=== PATIENT | male | born 1970 | race Caucasian/White ===

== ENCOUNTER 2016-12-31 10:29 | Day surgery (SDC) | payer OTHER ==
[2016-12-29 09:45] VITALS: BMI 27.3
[~2016-12-31 10:29] MED LIST: LACTATED RINGERS 1,000 ML IV SCH
[2016-12-31 10:50] VITALS: TEMP 97.6
[2016-12-31] MEDS ORDERED: PROPOFOL 10 MG/ML 20 ML VIAL IV ONE (11:10)
[2016-12-31] MEDS ORDERED: LIDOCAINE 1% INJ 10MG/ML (20 ML MDV) ONE (11:10)
--- NOTE | 2016-12-31 11:22 | P.PCN ---
Date of Procedure: 12/31/16 Procedure(s) Performed: BRIEF HISTORY: Patient is a 46-year-old, pleasant, white male, scheduled for an upper endoscopy as part of evaluation of long-standing history of GERD symptoms. He is on Prilosec 20 mg twice daily and still has nocturnal symptoms and a daily basis. He is hence scheduled for an upper endoscopy to rule out complicated reflux disease. PROCEDURE PERFORMED: Esophagogastroduodenoscopy with biopsy. PREOPERATIVE DIAGNOSIS: Long-standing history of GERD. IV sedation per anesthesia. PROCEDURE: After informed consent was obtained, the patient was brought into the endoscopy unit. IV conscious sedation was administered by Anesthesia under continuous monitoring. Initially the Olympus GIF-140 video endoscope was inserted into the mouth. Esophagus intubated without any difficulty. It was gradually advanced into the stomach and duodenum and carefully examined. The bulb and the second part of the duodenum appeared normal. The scope at this time was withdrawn to the stomach, adequately insufflated with air, and upon careful examination, mucosa of the antrum, had mild antral gastritis and biopsies were done from this area to rule out H. pylori infection. body, cardia and the fundus appeared normal. The scope was then withdrawn into the esophagus. Small hiatal hernia noted. The GE junction was located at 39 cm from the incisors. The esophagus appeared normal. There were no erosions or ulcerations seen and the patient tolerated the procedure well. IMPRESSION: 1. Small hiatal hernia but no evidence of Andersen's esophagus or esophagitis. 2. Mild antral gastritis gastritis. RECOMMENDATIONS: The findings of this examination were discussed with the patient as well as his family. He was advised to continue with Prilosec 20 mg twice daily half hour before breakfast and dinnertime and follow antireflux measures. If needed he was also advised to use [id number] Zantac at bedtime. He will follow with the biopsy results.
[2016-12-31 11:27] VITALS: RESP 18
[2016-12-31 12:00] VITALS: BP 112/81; PULSE 63
--- NOTE | 2017-01-09 06:47 | CDI ---
Dear Dr. Lawler, The operative reports documents IV sedation per anesthesia in one spot and IV Conscious sedation in the paragraph marked Procedure. The Anesthesia Record, however, has GA/Unconscious sedation checked off under Technique. This is conflicting documentation that needs clarification. Please clarify whether the anesthesia provided Luis Gale was Conscious sedation or GA/unconscious sedation. Please document this clarification as an addendum to the operative report. Thank you for your time, Martha Moseley,[facility] Outpatient Geophysical Operator Ashwini and Lucy FOOTE
--- NOTE | 2017-01-11 07:35 | CDI ---
Dear Dr. Lawler, The operative reports documents IV sedation per anesthesia in one spot and IV Consciouls sedation in the paragraph marked Procedure. The Anesthesia Record, however, has GA/Unconscious sedation checked off under Technique. This is conflicting documentation that needs clarification. Please clarify whether the anesthesia provided Luis Gale was Conscious sedation or GA/unconscious sedation. Please document this clarification as an addendum to the operative report. Thank you for your time, Martha Moseley,[facility] Outpatient Hydro Electric Station Operator Ashwini and [employer] MTDD
--- NOTE | 2017-01-14 06:18 | CDI ---
Dear Dr. Lawler, The operative reports documents IV sedation per anesthesia in one spot and IV Conscious sedation in the paragraph marked Procedure. The Anesthesia Record, however, has GA/Unconscious sedation checked off under Technique. This is conflicting documentation that needs clarification. Please clarify whether the anesthesia provided Luis Gale was Conscious sedation or GA/unconscious sedation. PLEASE DOCUMENT THIS CLARIFICATION AN ADDENDUM TO THE PROCEDURE NOTE. Thank you for your time, Martha Moseley,[facility] Outpatient Professor Of Biological Sciences [employer]wini and [employer] MTDD
--- NOTE | 2017-01-18 05:35 | CDI ---
Dear Dr. Lawler, The operative reports documents IV sedation per anesthesia in one spot and IV Conscious sedation in the paragraph marked Procedure. The Anesthesia Record, however, has GA/Unconscious sedation checked off under Technique. This is conflicting documentation that needs clarification. Please clarify whether the anesthesia provided Luis Gale was Conscious sedation or GA/unconscious sedation. Please document this clarification as an addendum to the operative report. Thank you for your time, [facility] Out[facility] Plant Assigner Lucy [email or web address] MTDD
--- NOTE | 2017-01-21 11:52 | PCN ---
ADDENDUM TO PROCEDURE NOTE: General anesthesia instead of conscious sedation.
== END 2016-12-31 12:21 | disposition home or self-care (01) ==
LOC: ORWHC2ENDO 10:29
PROVIDERS: ATTEND Internal Medicine Gastroenterology
DX: K21.0 Gastro-esophageal reflux disease with esophagitis (principal); K44.9 Diaphragmatic hernia without obstruction or gangrene; I25.10 Atherosclerotic heart disease of native coronary artery without angina pectoris; K29.50 Unspecified chronic gastritis without bleeding; I10 Essential (primary) hypertension; I25.2 Old myocardial infarction; Z95.5 Presence of coronary angioplasty implant and graft; J45.909 Unspecified asthma, uncomplicated; Z79.82 Long term (current) use of aspirin; Z79.899 Other long term (current) drug therapy
CPT/HCPCS: 88305; 88342; 43239; J2001; J2704

== ENCOUNTER → 2017-02-23 | Outpatient (CLI) | payer OTHER ==
--- NOTE | 2017-02-25 11:37 | ECHOS ---
DATE OF SERVICE: 02/23/2017 AGE: 46Y SEX: M HT: 69" WT: 180 lbs. Protocol Jose: X Others: Stress Echo Stage: 4 Dur. of Exercise: 9:00 *Heart Rate Blood Pressure *Rest: 91 Rest: 148/63 * *Max. Achieved: 153 Maximum BP: 174/93 85% PMHR: 146 100% PMHR: 172 *METS: 10.1 INDICATIONS: Chest pain. MEDICATIONS: Ibuprofen, aspirin, Lipitor, TriCor, metoprolol. CLINICAL INFORMATION: History of chest pain, hypertension, history of an AR ( ) PTCA, 1/2 pack of cigarettes a day for 35 years. This test was already dictated by me but apparently got lost and I am redictating it now. Resting ECG shows sinus rhythm, rate of 91 beats per minute, NJ interval of 0.16, QRS 0.08, normal ST-T waves. Utilizing a standard Jose protocol, a symptom-limited treadmill test was performed. Patient exercised for total of 9 minutes, attained a peak heart rate of 153 beats per minute, which is approximately 89% of predicted maximum heart rate without any chest pain or pressure or ST segment deviations indicative of ischemia in any of the monitoring 12 leads. No symptoms are reported throughout the study. Baseline images show normal thickening and contractility. Postexercise images shows improved contractility and thickening consistent with normal stress echocardiogram. IMPRESSION: 1. Normal stress echocardiogram. 2. Negative stress test by ST segment criteria, minimal J-point depressions without any flat ST segment depression noted. No symptoms reported.
--- NOTE | 2017-03-02 12:28 | ECHOS ---
DATE OF SERVICE: 02/23/2017 AGE: 46Y SEX: M HT: 69" WT: 180 lbs. Protocol Jose: X Others: Stress Echo Stage: 4 Dur. of Exercise: 9:00 *Heart Rate Blood Pressure *Rest: 91 Rest: 148/63 * *Max. Achieved: 153 Maximum BP: 174/93 85% PMHR: 146 100% PMHR: 172 *METS: 10.1 INDICATIONS: Chest pain. MEDICATIONS: Ibuprofen, aspirin, Lipitor, TriCor, metoprolol. Baseline EKG revealed normal sinus rhythm without significant ST-T changes. Patient walked on standard Jose protocol for 9 minutes, achieved a maximum heart rate of 153 beats per minute, which is more than 85% of predicted maximum. Stress test was stopped because of fatigue and shortness of breath. Nonspecific ST segment changes were noted, not suggestive of ischemia. There was no arrhythmia. By EKG criteria, this is a negative stress test with fair exercise capacity. Baseline echo images reveal normal wall motion and wall thickening of all segments. At peak exercise, there was good augmentation of left ventricular wall motion and wall thickening of all segments suggesting that there is no evidence of any stress induced ischemia on this study. FINAL IMPRESSION: 1. Fair exercise capacity with a negative stress test by EKG criteria. 2. Normal stress echocardiogram.
== END | disposition home or self-care (01) ==
LOC: RADNMMAIN 09:57
PROVIDERS: ATTEND Family Medicine
DX: R07.9 Chest pain, unspecified (principal)
CPT/HCPCS: 93017; 93350

== ENCOUNTER → 2017-11-10 | Outpatient (CLI) | payer OTHER ==
--- NOTE | 2017-11-10 14:10 | US ---
EXAMINATION TYPE: US kidneys/renal and bladder DATE OF EXAM: 11/10/2017 COMPARISON: Renal ultrasound October 11, 2016. CLINICAL HISTORY: N28.9 abnormal kidney function. Abnormal labs, no pain EXAM MEASUREMENTS: Right Kidney: 10.1 x5.5 x 4.6 cm Left Kidney: 10.4 x 4.4 x 5.4 cm Right Kidney: wnl, prominent pyramids Left Kidney: wnl, prominent pyramids Bladder: Poorly distended, wnl as visualized Right jet seen There is no evidence for hydronephrosis at this point in time. No nephrolithiasis is seen. No tavia s are identified. Bladder is poorly distended and thus suboptimally evaluated. Distal right ureter je t is seen. IMPRESSION: No hydronephrosis is evident bilaterally.
== END | disposition home or self-care (01) ==
LOC: RADUSWWP 13:11
PROVIDERS: ATTEND Family Medicine
DX: N28.9 Disorder of kidney and ureter, unspecified (principal)
CPT/HCPCS: 76770

== ENCOUNTER 2018-02-08 10:25 | Emergency (ER) | payer OTHER ==
[2018-02-08 10:30] VITALS: RESP 16
--- NOTE | 2018-02-08 11:18 | XR ---
EXAMINATION TYPE: XR foot complete LT DATE OF EXAM: 02/08/2018 CLINICAL HISTORY: Left foot pain for 4 days. TECHNIQUE: Frontal, lateral, and oblique images of the left foot are obtained. COMPARISON: None FINDINGS: The Aparicio's toe is present. There is no acute fracture/dislocation evident in the left danni t. The joint spaces in the left foot appear within normal limits. The overlying soft tissue appears unremarkable. IMPRESSION: There is no acute fracture or dislocation in the left foot.
--- NOTE | 2018-02-08 11:26 | ED ---
General Adult HPI - General Chief complaint: Extremity Injury, Lower Stated complaint: Left Foot Pain Time Seen by Provider: 02/08/18 10:50 Source: patient Mode of arrival: ambulatory Limitations: no limitations - History of Present Illness Initial comments: 47-year-old presenting with 4 days of left foot pain. Pain began on the bottom of his left foot. He denies any specific injury or overuse. Pain has been steady over the past 4 days, worse with ambulation. He has been taking Motrin with only minimal relief. Denies fever or chills. Denies any ankle or knee or hip pain. Denies any redness to the foot. Patient has past medical history of CAD status post stent, otherwise healthy, currently taking aspirin and beta alberto. No history diabetes. - Related Data Home Medications Medication Instructions Recorded Confirmed Aspirin EC [Ecotrin Low Dose] 81 mg PO DAILY 06/25/16 02/08/18 Omeprazole 20 mg PO BID 06/25/16 02/08/18 Albuterol Inhaler [Ventolin Hfa 1 - 2 puff INHALATION Q6HR PRN 12/29/16 02/08/18 Inhaler] Atorvastatin [Lipitor] 80 mg PO DAILY 12/29/16 02/08/18 Ferrous Sulfate [Feosol] 325 mg PO DAILY 12/29/16 02/08/18 Ginkgo Biloba [place] Extract [Ginkgo] 60 mg PO DAILY 12/29/16 02/08/18 Metoprolol Tartrate [Lopressor] 50 mg PO BID 12/29/16 02/08/18 Fenofibrate Nanocrystallized 145 mg PO DAILY 02/08/18 02/08/18 [Fenofibrate] Previous Rx's Medication Instructions Recorded Ibuprofen [Motrin] 600 mg PO Q8HR PRN #24 tab 02/08/18 Allergies Allergy/AdvReac Type Severity Reaction Status Date / Time cat dander Allergy Unknown sneezing, Verified 02/08/18 10:54 runny nose Review of Systems ROS Statement: Those systems with pertinent positive or pertinent negative responses have been documented in the HPI. ROS Other: All systems not noted in ROS Statement are negative. Past Medical History Past Medical History: Asthma, Chest Pain / Angina, GERD/Reflux, Hyperlipidemia, Hypertension, Myocardial Infarction ([place]), Pneumonia Additional Past Medical History / Comment(s): [place] WITH STENT 08/28/2014., PNEUMONIA 2013. Last Myocardial Infarction Date:: 08/28/14 History of Any Multi-Drug Resistant Organisms: None Reported Past Surgical History: Heart Catheterization With Stent Additional Past Surgical History / Comment(s): Right meniscus surgery. Heart cath with stent to Diag 08/28/14 Past Anesthesia/Blood Transfusion Reactions: No Reported Reaction Date of Last Stent Placement:: 08/28/14 Past Psychological History: No Psychological Hx Reported Smoking Status: Current every day smoker Past Alcohol Use History: Rare Past Drug Use History: Cocaine, Marijuana, Methamphetamine - Past Family History Mother Family Medical History: No Reported History General Exam Limitations: no limitations General appearance: alert, in no apparent distress Head exam: Present: atraumatic, normocephalic Eye exam: Present: normal appearance, PERRL ENT exam: Present: normal exam Neck exam: Present: normal inspection. Absent: tenderness, meningismus Respiratory exam: Present: normal lung sounds bilaterally. Absent: respiratory distress Cardiovascular Exam: Present: regular rate, normal rhythm GI/Abdominal exam: Present: soft. Absent: distended, tenderness Extremities exam: Present: other (Left lower extremity, no knee or ankle pain, good range of motion in all joints, normal cap refill, 2+ DP and PT pulse, there is pain at the plantar surface with outpatient and over the anterior portion of the heel.) Neurological exam: Present: alert, oriented X3. Absent: motor sensory deficit Skin exam: Present: warm, dry, intact, normal color. Absent: rash, cyanosis, diaphoretic Course Vital Signs 02/08/18 10:27 Temperature 97.5 F L Pulse Rate 79 Respiratory 16 Rate Blood Pressure 136/69 O2 Sat by Pulse 100 Oximetry Medical Decision Making - Medical Decision Making 47-year-old male with atraumatic left foot pain. No concern for infectious cause, foot is overall normal-appearing with normal pulses. There is some mild tenderness on the plantar surface consistent with plantar fasciitis. X-ray shows no acute bony abnormality. No soft tissue swelling. Patient will continue nonsteroidal anti-inflammatories, and follow-up with his primary care physician. Disposition Clinical Impression: Plantar fasciitis Disposition: HOME SELF-CARE Instructions: Knee Pain (ED) Prescriptions: Ibuprofen [Motrin] 600 mg PO Q8HR PRN #24 tab PRN Reason: Pain Referrals: Frederick Bright MD [Primary Care Provider] - 1-2 days Time of Disposition: 11:29
[2018-02-08 11:37] VITALS: BP 152/80; PULSE 69; TEMP 97.9
== END 2018-02-08 11:43 | disposition home or self-care (01) ==
LOC: EC 10:25
DX: M72.2 Plantar fascial fibromatosis (principal); I10 Essential (primary) hypertension; E78.5 Hyperlipidemia, unspecified; K21.9 Gastro-esophageal reflux disease without esophagitis; I25.2 Old myocardial infarction; F17.200 Nicotine dependence, unspecified, uncomplicated; Z95.5 Presence of coronary angioplasty implant and graft; Z79.82 Long term (current) use of aspirin; Z79.899 Other long term (current) drug therapy
CPT/HCPCS: 99283

== ENCOUNTER → 2019-08-17 | Outpatient (CLI) | payer OTHER ==
--- NOTE | 2019-08-17 14:37 | MR ---
EXAMINATION TYPE: MR goldie/lscarolina wo con DATE OF EXAM: 08/17/2019 COMPARISON: NONE HISTORY: Lumbosacral with right-sided sciatic pain. Major spinal pain into right thigh increasing in years for patient. TECHNIQUE: Multiplanar, multisequence imaging of the thoracic and lumbar spine are performed without IV contrast. FINDINGS: T-SPINE: FINDINGS: Coronal images show levoconvex scoliotic curvature centered upper thoracic spine roughly T3 level. Satisfactory alignment of sagittal images. Spinal cord shows normal course, caliber, and sig nal as it courses the thoracic spine. Vertebral body heights are satisfactory. Tiny posterior disc herniation is seen T11-T12 level on sagittal image 7. Mild multilevel anterior spurring. Bone marrow signal intensity is preserved. Axial images show additional small to tiny right paracentral disc protrusion effacing anterolateral t hecal sac T1-T2 level on axial image 18 series 701. No additional suspicious herniations are seen. No suspicious incidental findings in the visualized thorax or upper abdomen. IMPRESSION: Mild multilevel spurring. Tiny posterior disc herniations at T1-T2 and T11-T12 level. L-SPINE: Sagittal images show vertebral body height and alignment appear satisfactory.. The intervertebral dis cs demonstrate normal heights and hydration. The conus medullaris is normal in position and signal e nding mid L1 level. Mild multilevel anterior spurring and heterogeneous endplate changes. Axial images show mild facet arthropathy L4-L5 and L5-S1 levels. Spinal canal is preserved. Bilateral neural foramina are patent. No suspicious incidental retroperitoneal findings. IMPRESSION: Mild facet arthropathy lower lumbar spine.
== END | disposition home or self-care (01) ==
LOC: RADMRIMAIN 13:28
PROVIDERS: ATTEND Nurse Practitioner Family
DX: M46.96 Unspecified inflammatory spondylopathy, lumbar region (principal); M54.41 Lumbago with sciatica, right side
CPT/HCPCS: 72146; 72148

== ENCOUNTER → 2019-09-17 | Outpatient (CLI) | payer OTHER ==
--- NOTE | 2019-09-18 12:49 | MR ---
EXAMINATION TYPE: MR knee RT wo con DATE OF EXAM: 09/17/2019 COMPARISON: None HISTORY: Pain in right knee and joint effusion. TECHNIQUE: Multiplanar, multisequence imaging of the right knee is performed without IV contrast. FINDINGS: MEDIAL MENISCUS: There is a complex tear of the medial meniscus, predominantly radial component of th e body with oblique component of the anterior horn contiguous with the superior articular surface and oblique component of the posterior horn continues with the inferior articular surface. There is candelaria tional fraying of the inferior surface posterior horn medial meniscus. LATERAL MENISCUS: Anterior and posterior horns are intact without tear. CRUCIATE LIGAMENTS: The anterior and posterior cruciate ligaments are intact and unremarkable. COLLATERAL LIGAMENTS: The medial collateral ligament and lateral collateral ligament complex are inta ct. Some increased signal thickening of the deep fibers of the medial collateral ligament complex ins erting a proximal tibia coronal image 21. EXTENSOR MECHANISM: Visualized quadriceps and patellar tendons are intact. EFFUSION: Small suprapatellar joint effusion. POPLITEAL CYST: No popliteal/woods cyst. TRICOMPARTMENT SPACES: Mild to moderate narrowing patellofemoral compartment. Slightly high position patella or patella keira. No significant spurring. CARTILAGE: Tricompartmental articular cartilage is maintained. BONE MARROW SIGNAL: Subchondral cystic change in the central medial aspect medial tibial plateau. OTHER: No additional significant abnormality is appreciated. IMPRESSION: Complex full-thickness tear medial meniscus as detailed above.
== END | disposition home or self-care (01) ==
LOC: RADMRIMAIN 13:02
PROVIDERS: ATTEND Orthopaedic Surgery Sports Medicine
DX: S83.231A Complex tear of medial meniscus, current injury, right knee, initial encounter (principal)